=== PATIENT | male | born 1965 | race Caucasian/White ===

== ENCOUNTER 2017-06-15 06:43 | Day surgery (SDC) | payer OTHER ==
[~2017-06-15] VITALS: Ht 170.2 cm; Wt 66.0 kg
[2017-06-15] VITALS (8 sets, daily range): BP systolic 102–139; BP diastolic 59–77; PULSE 61–79; RESP 14–18; Ht 170.2 cm; Wt 66.0 kg
[~2017-06-15 06:43] MED LIST: IBUP400T22 PO
[2017-06-15] MEDS ORDERED: METO25TA7 PO (07:42)
[2017-06-15 08:56] LABS: BASOPHILS % 0.4 % (0.0-2.0); EOSINOPHILS # 0.1 10^3/ul (0.0-0.5); EOSINOPHILS % 1.6 % (0.0-7.0); HEMATOCRIT 42.8 % (42.0-52.0); HEMOGLOBIN 13.9 g/dl (14.0-18.0); LYMPHOCYTES # 1.7 10^3/ul (0.8-2.9); LYMPHOCYTES % 33.1 % (15.0-51.0); MEAN CORPUSCULAR HEMOGLOBIN 28.4 pg (29.0-33.0); MEAN CORPUSCULAR HGB CONC 32.5 g/dl (32.0-37.0); MEAN CORPUSCULAR VOLUME 87.5 fl (82.0-101.0); MEAN PLATELET VOLUME 12.6 fl (7.4-10.4); MONOCYTE # 0.7 10^3/ul (0.3-0.9); MONOCYTES % 12.8 % (0.0-11.0); NEUTROPHIL # 2.7 10^3/ul (1.6-7.5); NEUTROPHILS % 51.9 % (39.0-77.0); PLATELET COUNT 157 10^3/UL (140-415); RED BLOOD COUNT 4.89 10^6/ul (4.70-6.10); RED CELL DISTRIBUTION WIDTH 14.3 % (11.5-14.5); WHITE BLOOD COUNT 5.2 10^3/ul (4.8-10.8)
[2017-06-15 08:59] LABS: INR 0.97; PARTIAL THROMBOPLASTIN TIME 28.7 Sec (25.0-35.0); PROTIME 12.9 Sec (12.2-14.2)
[2017-06-15] MEDS ORDERED: LIDOCAINE 1% (MDV) 20 ML INJ ONE (09:08)
[2017-06-15] MEDS ORDERED: IODIXANOL LOCM 100 ML BTL ONE ×2 (09:08→10:08)
[2017-06-15] MEDS ORDERED: VERAPAMIL 5 MG INJ ONE (09:08)
[2017-06-15] MEDS ORDERED: NITROGLYCERIN (IC) 100 MCG/ML INJ ONE (09:10)
[2017-06-15] MEDS ORDERED: HEPARIN 1000 UNITS/ML 10 ML INJ ONE (09:10)
[2017-06-15] MEDS ORDERED: FENTAnyl 50 MCG/ML VIAL ONE (09:11)
[2017-06-15] MEDS ORDERED: MIDAZOLAM 1 MG/ML 2 ML INJ ONE (09:11)
[2017-06-15 09:14] LABS: CALCIUM 9.4 mg/dl (8.4-10.2); CREATININE 0.87 mg/dl (0.61-1.24); POTASSIUM 4.6 mmol/L (3.5-5.1)
[2017-06-15] MEDS ORDERED: SOD CHLORIDE 0.9% 1,000 ML IV ONE (10:00)
[2017-06-15] MEDS ORDERED: SOD CHLORIDE 0.9% 500 ML ONE (10:08)
[2017-06-15] MEDS ORDERED: ACETAMINOPHEN 325 MG TAB PO PRN (10:30)
[2017-06-15] MEDS ORDERED: AL HYDROX/MG HYDROX/SIMETH 30 ML CUP PO PRN (10:30)
[2017-06-15] MEDS ORDERED: SOD CHLORIDE 0.9% 1,000 ML IV SCH (10:30)
[2017-06-15] MEDS ORDERED: ONDANSETRON 4 MG INJ IV PRN (10:30)
--- NOTE | 2017-06-15 10:32 | PDOCDIS ---
Discharge Instructions CONDITION Patient Condition: Good HOME CARE INSTRUCTIONS: Diet Instructions: Modified Fat ACTIVITY: Activity Restrictions: Slowly Increase Activity Avoid heavy lifting (Not greater than 5 pounds with right arm for 3 days) [address] Drive (1 day) Jeffrey Philippe DO Jun 15, 2017 10:32
--- NOTE | 2017-06-15 10:42 | OPR ---
Date/Time of Note Date/Time of Note DATE: 06/15/17 TIME: 10:34 Operative Report Procedure Date: Jun 15, 2017 Preoperative Diagnosis Dyspnea on exertion Hypertrophic obstructive cardiomyopathy Postoperative Diagnosis Hypertrophic obstructive cardiomyopathy Estimated Blood Loss: minimal Complications: None Operative\Procedure Findings Hemodynamics LV pressure at the apex was 184/6 with EDP of 33 LV pressure in the region of the LVOT was 113/13 with EDP of 42 On pullback into the aorta, pressure was 115/58 Coronary anatomy Left main is a long caliber vessel with no significant disease Circumflex is a small to medium caliber vessel with no significant disease LAD is a medium caliber vessel with a mid 20% stenosis. There were 2 small to medium caliber vessels seen after the first diagonal RCA is a medium caliber vessel and dominant with no significant disease Procedure Description The patient was brought to the [facility] after informed consent. Patient was prepped and draped as per protocol. Right radial access was obtained and a 5/6 Palestinian sheath was placed in the right radial artery. A 6 Palestinian Logan catheter was used to engage left main and antrum was performed. Unfortunately, there was significant spasming and was very difficult to maneuver the catheter. Engage the RCA and antrum was performed. With a J-wire, we cross into the left ventricle for pressure measurements with the plan of switching out for dual- lumen length and catheter. Given severe spasming, I was concerned that with removal of catheter, I would not be able to put a new catheter in. The entire catheter was at the apex and with pullback, significant gradient was measured from apex to the LVOT. The catheter wire was removed. There was no immediate complications. Jeffrey Philippe DO Jun 15, 2017 10:42
== END 2017-06-15 14:32 | disposition home or self-care (01) ==
LOC: SDS 06:43
PROVIDERS: ATTEND Internal Medicine Cardiovascular Disease
DX: I42.8 Other cardiomyopathies (principal)
CPT/HCPCS: 80048; 85025; 85610; 85730; 93458; C1769; C1887; J1644; J2250; J3010; J7040; Q9967; Z7610